=== PATIENT | female | born 1995 ===

== ENCOUNTER → 2022-03-08 | Day surgery (SDC) | payer BC, OTHER ==
[~2022-03-08] MED LIST: Lidocaine 1% MPF 2 ML VIAL ONE; cefTRIAXone\\ROCEPHIN 500 MG VIAL IM SCH
== END ==
LOC: CSHSDC/OP 11:18
PROVIDERS: ATTEND Obstetrics & Gynecology
DX: A54.9 Gonococcal infection, unspecified (principal)
CPT/HCPCS: 96372; J0696

== ENCOUNTER 2022-07-10 09:39 | Day surgery (SDC) | payer BC, OTHER ==
[2022-07-06 12:34] VITALS: BMI 28.3
[2022-07-10] MEDS ORDERED: Lidocaine 1% MPF 2 ML VIAL ONE (10:20)
[2022-07-10] MEDS ORDERED: Ferric Subsulfate (ASTRINGYN) 8 GM VIAL ONE (11:40)
[2022-07-10] MEDS ORDERED: Midazolam HCl 2 mg/2 ml Vial ONE ×2 (11:41→12:05)
[2022-07-10] MEDS ORDERED: Ondansetron PF 4 MG/2 ML Vial ONE (12:05)
[2022-07-10] MEDS ORDERED: PROPOFOL 20 ML ONE (12:05)
[2022-07-10] MEDS ORDERED: Glycopyrrolate 0.2 MG/ML 5 ML SYRINGE ONE (12:05)
[2022-07-10] MEDS ORDERED: Dexamethasone 20 MG/5 ML VIAL ONE (12:05)
[2022-07-10] MEDS ORDERED: Ketorolac Tromethamine 30 MG/ML VIAL ONE (12:05)
[2022-07-10] MEDS ORDERED: Fentanyl 100 MCG/2 ML VIAL ONE ×2 (12:05→13:56)
== END 2022-07-10 14:55 | disposition home or self-care (01) ==
LOC: CSHSDC 09:39
PROVIDERS: ATTEND Obstetrics & Gynecology
PROC: 0UBC8ZX Excision of Cervix, Via Natural or Artificial Opening Endoscopic, Diagnostic (ICD-10-PCS; principal; 2022-07-10)
DX: N87.0 Mild cervical dysplasia (principal); Z79.899 Other long term (current) drug therapy; Z91.018 Allergy to other foods
CPT/HCPCS: 36415; 86850; 86900; 86901; 88305; 88307; J0690; J1100; J1885; J2250; J2405; J2704; J3010